=== PATIENT | female | born 1990 | race Caucasian/White ===

== ENCOUNTER 2023-08-08 08:13 | Outpatient (CLI) | payer BC, SELFPAY ==
--- NOTE | 2023-08-08 08:15 | CRLHL7_ITS ---
For Patients: As a result of the Cures Act, medical imaging exams and procedure reports are released immediately into your electronic medical record. You may view this report before your referring provider. If you have questions, please contact your health care provider. INDICATION: Dating and viability. TECHNIQUE: Ultrasound OB pelvis transabdominal and transvaginal. Real-time peña-scale imaging of the pelvis was performed. COMPARISON: None. FINDINGS: Patient reported last menstrual period: 06/02/2023 Gestational age by LMP: 9 weeks 4 days Intrauterine gestational sac: Present. Embryo present: Yes. Embryo cardiac activity: 174 BPM. Parks rump Length: 3.6 cm. Sonographic gestational age: 10 weeks 3 days. Sonographic estimated due date: 03/02/2024. Yolk sac: Normal, 4 mm. Perigestational hemorrhage: None. Ovaries and adnexae: Unremarkable. No suspicious lesions or fluid collections. IMPRESSION: Single viable intrauterine with an ultrasound estimated gestational age of 10 weeks 3 days. No abnormalities seen. Dictated by Elizabeth Castro MD @ 08/09/2023 11:23:02 AM (Electronically Signed)
== END 2023-08-08 08:14 | disposition home or self-care (01) ==
LOC: US 08:14
PROVIDERS: PCP Family Medicine; Visit Provider Physician Assistant
DX: Z34.91 Encounter for supervision of normal pregnancy, unspecified, first trimester (principal); Z3A.10 10 weeks gestation of pregnancy
CPT/HCPCS: 76817; 86317; 86592; 86703; 86704; 86706; 86762; 86778; 86787; 86803; 86850; 86900; 86901; 87086; 87340; 87491; 87591

== ENCOUNTER 2023-08-08 09:19 | Outpatient (CLI) | payer BC, SELFPAY ==
[2023-08-08 15:59] LABS: Chlamydia DNA Amplified* NOT DETECTED (No Detected); GC DNA Amplified* NOT DETECTED (No Detected)
== END 2023-08-08 09:20 | disposition home or self-care (01) ==
PROVIDERS: PCP Family Medicine; Visit Provider Physician Assistant
DX: Z34.91 Encounter for supervision of normal pregnancy, unspecified, first trimester (principal); Z3A.10 10 weeks gestation of pregnancy
CPT/HCPCS: 86317; 86592; 86703; 86704; 86706; 86762; 86778; 86787; 86803; 86850; 86900; 86901; 87086; 87340; 87491; 87591

== ENCOUNTER 2023-10-17 08:04 | Outpatient (CLI) | payer BC, SELFPAY ==
--- NOTE | 2023-10-17 08:15 | CRLHL7_ITS ---
For Patients: As a result of the Century Cures Act, medical imaging exams and procedure reports are released immediately into your electronic medical record. You may view this report before your referring provider. If you have questions, please contact your health care provider. INDICATION: Evaluate anatomy. COMPARISON: None. TECHNIQUE: Real time peña scale imaging of the fetus was performed. FINDINGS: Sonographic imaging demonstrates a single living intrauterine gestation. Fetus demonstrates a regular cardiac rate of 139 beats per minute. Fetus has a vertex orientation and longitudinal lie. The placenta lies posteriorly without evidence of placenta previa. Amniotic fluid volume appears normal. Single deepest vertical pocket: 4.7 cm. The cervix is closed and measures 4.3 cm in length. The composite ultrasound gestational age is calculated at 20 weeks 1 day with an estimated sonographic due date of March 04, 2024. The estimated weight is 346 grams which lies at the 86th percentile. The following biometric measurements were obtained: Biparietal diameter: 4.6 cm/19 weeks 6 days 65% Head circumference: 17.7 cm/20 weeks 2 days 73% Abdominal circumference: 15.6 cm/20 weeks 5 days 81% Femur length: 3.2 cm/19 weeks 6 days 55% The HC/AC ratio measures: 1.14 range (1.07-1.25) The anatomic survey is technically challenging due to bowel gas and body habitus. On anatomic survey, there is a normal appearance of the cerebral ventricles, cisterna magna and cerebellum. The nose, lips, and facial profile appear normal. The cervical, thoracic and lumbar spine are well visualized and appear normal. There is a normal four-chamber heart view and the left and right ventricular outflow tracts appear normal. diaphragm, stomach, kidneys and bladder appear normal. There is a normal three-vessel cord and cord insertion site. The four extremities appear normal. IMPRESSION: Normal OB ultrasound exam with concordance of clinical and sonographic dating. No intrinsic abnormalities noted on anatomic survey. Dictated by Brice Mondragon MD @ 10/17/2023 9:43:48 AM (Electronically Signed)
== END 2023-10-17 08:05 | disposition home or self-care (01) ==
LOC: US 08:05
PROVIDERS: PCP Family Medicine; Visit Provider Physician Assistant
DX: Z34.92 Encounter for supervision of normal pregnancy, unspecified, second trimester (principal); Z3A.20 20 weeks gestation of pregnancy
CPT/HCPCS: 76805

== ENCOUNTER 2023-12-07 10:05 | Outpatient (CLI) | payer BC, SELFPAY | END 2023-12-07 10:06 | disposition home or self-care (01) | LOC: NFLDREF 12-11 08:13 | PROVIDERS: PCP Family Medicine; Referring Provider Family Medicine; Visit Provider Obstetrics & Gynecology | DX: Z34.92 Encounter for supervision of normal pregnancy, unspecified, second trimester (principal); Z3A.26 26 weeks gestation of pregnancy | CPT/HCPCS: 86592 ==

== ENCOUNTER 2024-01-23 08:02 | Outpatient (CLI) | payer BC, SELFPAY ==
--- NOTE | 2024-01-23 08:15 | US_ITS ---
Patient: JEFF SOTO Facility:?[facility] Patient ID:?[id number] Site Patient ID:?[id number]. Site :?[id number] Study:?US-OB Pelvis OB F/U GROWTH-01/23/2024 8:46:48 AM Ordering Physician:?KALA NIX M.D. Final Report: CLINICAL HISTORY: LMP: 06/02/2023. EDILSON by LMP: 03/08/2024. GA: 33w,4d. Desai. INDICATION: Covid in . COMPARISON: 10/17/2023. FINDINGS: Cervix: Not visualized. position: Vertex. Placenta/cord: Posterior. Technique: Transabdominal. Amniotic Fluid: 5.5 cm SDP BPD: 8.2 cm. 32w 5d, 23 percent. HC: 31.4 cm. 35w 2d, 57 percent. AC: 30.8 cm. 34w 5d, 82 percent. FL: 6.5 cm. 33w 5d, 43 percent. FL/AC: 21.57 percent. HC/AC Ratio: 1.02. Heart rate: 126 beats per minute. age by this US: 34w 1d. EDILSON by this US: 03/04/2024. EFW: 2394 g. Weight: 5 lbs, 4 oz. Percentile by EDILSON: 65 percent. IMPRESSION: Measurements are consistent with dates. Good interval growth since the prior exam. CEZAR TUCKER M.D. JAYESHG:mable D& [email or web address] be/Dictated by: Cezar Tucker MD @ 01/23/2024 1:55:00 PM Signed by:?Cezar Tucker MD @01/23/2024 3:19:26 PM (Electronic Signature)
== END 2024-01-23 08:03 | disposition home or self-care (01) ==
LOC: US 08:02
PROVIDERS: PCP Family Medicine; Visit Provider Obstetrics & Gynecology
DX: O98.513 Other viral diseases complicating pregnancy, third trimester (principal); U07.1 COVID-19; Z3A.33 33 weeks gestation of pregnancy
CPT/HCPCS: 76816

== ENCOUNTER 2024-02-06 09:30 | Outpatient (CLI) | payer BC, SELFPAY ==
[2024-02-07 10:09] LABS: Strep B DNA Probe Negative (Negative)
[2024-02-07 10:28] LABS: Strep B Susceptibility Needed? No
== END 2024-02-06 09:31 | disposition home or self-care (01) ==
LOC: NFLDREF 09:42
PROVIDERS: PCP Family Medicine; Visit Provider Physician Assistant
DX: Z34.03 Encounter for supervision of normal first pregnancy, third trimester (principal)
CPT/HCPCS: 87081; 87653

== ENCOUNTER 2024-03-11 08:38 | Inpatient (IN) | payer BC, MEDICAID, SELFPAY ==
[2024-03-11] VITALS (96 sets, daily range): BP systolic 78–130; BP diastolic 45–78; PULSE 55–222; RESP 18; TEMP 36.6–37.1; O2SAT 81–100; BMI 39.1
[2024-03-11] MEDS: LACTATED RINGERS 1000 ML 1,000 ML 900 ML IV ×2 (09:10→10:10)
[2024-03-11] MEDS: fentaNYL 100 MCG/2 ML inj IVP (09:39)
[2024-03-11] MEDS: ROPIVACAINE 0.2% 100 ml 100 ML 12 MG EPIDURAL (09:45)
[2024-03-11] MEDS: BUPIVACAINE 0.25% PF 10 ML 10 ML ML EPIDURAL (09:46)
--- NOTE | 2024-03-11 10:04 | PM.ANBPRC ---
[facility] Medical History Traumatic hematoma of forehead ?S00.83XA - Contusion of other part of head, initial encounter (ICD-10) Family History Grandfather Diabetes Father High blood pressure Social History Narrative: History of chicken pox: Yes. History of blood transfusion: no. SOCIAL HISTORY: Occupation: [employer]. Marital status: . Adventism/cultural needs: no. Chemical or radiation exposure: yes, at work. Following appropriate precautions. Pre- tobacco use: no. Pre- alcohol use: 0-2/day. Current tobacco use: no. Current alcohol use: no. Recreational drug use: no. Dietary restrictions: no. Blood transfusion acceptable in an emergency: yes. FAMILY AND GENETIC HISTORY: See problem list. Denies history recurrent loss, defects, inheritable disease PSYCHOSOCIAL HISTORY: History of depression or currently depressed: yes. Current or past physical, emotional, or sexual mistreatment: no. Problems that will make it hard to make it to appointments: no. What is your current living situation?: I presently have a place to live Problems where you live: no known problems In the past 12 months, utilities in danger of being shut off: no In past 12 months, lack of transportation kept you from medical appts, meetings, work, or getting things needed for daily living: no In the past 12 mos, have been you worried that your food would run out before you had money to buy more?: never true In the past 12 mos, the food you bought just didn't last and you didn't have money to buy more?: never true Smoking Status: Never smoker How often does anyone, including family, friends and others, physically hurt you: never How often does anyone, including family, friends and others, insult or talk down to you: never How often does anyone, including family, friends and others, threaten you with harm: never How often does anyone, including family, friends and others, scream or curse at you: never Little interest or pleasure in doing things: not at all Feeling down, depressed, or hopeless: several days Meds Home Medications and Allergies Home Medications Medication Instructions Recorded Confirmed Type docosahexaenoic acid 200 mg mg PO .qd 08/08/23 03/05/24 History capsule ( DHA) aspirin 81 mg tablet,delayed 81 mg PO QDAY 11/06/23 03/11/24 History release (Adult Low Dose Aspirin) calcium carbonate (Tums) 200 mg PO BID 01/09/24 03/11/24 History vits no.130-ferrous fum 1 tab PO DAILY 03/10/24 03/11/24 History 27 mg iron-folic acid 800 mcg tablet ( Vitamin) Allergies Allergy/AdvReac Type Severity Reaction Status Date / Time Sulfamethoxazole / AdvReac Intermediate Uncoded 03/05/24 08:18 trimethoprim Results Vital Signs Vital Signs: Last Vital Signs Temp 98.8 F 03/11/24 07:36 Pulse 63 03/11/24 10:03 Resp 18 03/11/24 07:36 BP 92/51 L 03/11/24 10:03 Pulse Ox 99 03/11/24 10:00 Weight: 113.262 kg Height: 170.18 cm Anesthesia Procedures Epidural Insertion Patient Location: OB Start Time: 09:15 Stop Time: 09:45 Start Date: 03/11/24 Stop Date: 03/11/24 Reason for Block: procedure for pain Patient Position: sitting Performed By: Liset Spears Preanesthetic Checklist: IV checked, risks and benefits discussed, monitors and equipment checked, timeout performed and anesthesia consent Prep: chlorhexidine gluconate Monitoring: blood pressure monitoring, continuous pulse oximetry and heart rate Approach: midline Vertebral Space: lumbar (1-5) Epidural Technique: ELSIE saline Needle Type: Tuohy needle Injection Technique: continuous catheter Needle gauge: 17 Needle Length (cm): 10 cm Needle Insertion Depth (cm): 7 Catheter Gauge: 19 Catheter Type: multi-orifice Catheter at skin depth (cm): 12 Test Dose Result: negative and lidocaine 1.5% with epinephrine 1 to 200,000
[2024-03-11] MEDS: PHENYLEPHRINE 100 MCG/ML SYRINGE IVP ×8 (10:06→10:58)
[2024-03-11] MEDS: ePHEDrine sulfate 5 MG/ML inj 10 MG IVP ×2 (10:19→10:43)
[2024-03-11] MEDS: LACTATED RINGERS 1000 ML 1,000 ML 1200 ML IV (11:10)
[2024-03-11] MEDS: OXYTOCIN 30 unit/500 ML in NS 30 UNIT/500 ML BAG 300 UNIT IVPB (13:41)
[2024-03-11] MEDS: IBUPROFEN 600 MG TABLET PO (18:17)
--- NOTE | 2024-03-11 18:37 | P.ON_ITS ---
Brief Operative Note Date of procedure: 03/11/24
--- NOTE | 2024-03-11 18:37 | P.LDBA_ITS ---
Subjective History of Present Illness Time Seen by Provider: 11:00 Narrative: Patient is being admitted to Labor and Delivery for spontaneous labor. She is a 33 year old at 40.3 weeks gestation. Her full history and physical was dictated by Dr. Marga Weiner on 02/15/24. Please see this for details. She has been landen almost every 1-2 minutes and was 5/90/-1 on arrival to L&D. Specific Issues/Plans Spouse: Timmy. Baby: Girl. H&P by NDP on 02/15/2024 1. Anxiety and depression, Lexapro 10mg 2. surgical instrument technician Toxoplasmosis IgG and IgM: negative 3. History of asthma, has not used albuterol in years 4. Hyperhidrosis Recommend discontinuing oxybutynin and we can reassess 5. Recurrent UTIs 6. Obesity, BMI 34.7 * Hgb A1-C: 4.2% * ASA 81mg * 1hr GTT on 12/07/2023: 137 7. Hepatitis-B surface antibody: Indeterminate 8. Covid in 11/01/23: USN for growth at 32 weeks ordered on 12/21/2023. 01/23/2024 ultrasound for EFW: Vertex, S DP 5.5 cm. EFW 2394 g, 5 lb 4 oz, 65%. HC 57%, BPD 23%, AC 82%, FL 43% 9. GERD not controlled with famotidine. Given pantoprazole 40mg QD on 01/23/24. FLU SHOT: 08/08/23 COVID: Vaccinated, due for updated shot this fall, declined 10/03/23 Tdap: 01/09/24 34 wk Hgb: collected late 02/28 13.3 OB - Problem Based A/P Additional Plan (1) : Status: Acute Plan - Expected management - Pending epidural OB Exam Physical Exam Vital signs: Temp Pulse Resp BP Pulse Ox 98.4 F 78 18 129/66 82 L 03/11/24 14:15 03/11/24 15:58 03/11/24 07:36 03/11/24 15:58 03/11/24 12:23 Narrative: Physical exam: General: Grimacing. Breathing through contractions Psych: Alert and oriented x3, full affect HEENT: Normocephalic, atraumatic Lungs: Unlabored breathing in between contractions. Neuro: No focal deficit. Mentating appropriately Pelvic exam: /-1 per RN cervical exam
--- NOTE | 2024-03-11 18:37 | PM.ONB ---
Brief Operative Note Date of procedure: 03/11/24
--- NOTE | 2024-03-11 18:38 | W.PM.VAGD1_ITS ---
Procedure Delivery date: 03/11/24 Procedure Done: Global Procedure Details: Anu is a 33 year-old G1 P 0 admitted on 03/11/24 at 40 and 3/7 weeks gestation for spontaneous onset of labor. Cervical exam on admission was 5 cm/90 % effaced/-1 station with membranes intact in vertex presentation. Contractions were every 2 minutes. heart rate demonstrated baseline 125 bpm with moderate variability, + accelerations, - decelerations; a category I tracing. GBS negative SROM occurred at 10 12 on March 11 with clear fluid. Labor Analgesia: Epidural Pitocin: No Labor onset: March 11 at 0945 Complete: March 11 at 12 18 Pushing: March 11 at 1235 heart tones during second stage were II with rare variable and late decelerations. At 1338 a viable female delivered in vertex away presentation over intact perineum via spontaneous vaginal delivery. Infant was placed on maternal abdomen. Cord was clamped and cut after a 30-60 second delay. Nose and mouth were bulb suctioned. weight: 3790. 8 at 1 minute and 9 at 5 minutes. Shoulder dystocia: No. Nuchal cord: No . Placenta delivered spontaneously and complete at 1344 with a 3 vessel cord. Complications: None. Mother and were stable after delivery. Laceration(s): Right periurethral and periclitoral, repaired with 2-0 Vicryl for the right chapin urethral and 3-0 Vicryl for the periclitoral laceration. Estimated blood loss: 150 mL. Sponge and needles counts are correct. Mother and were stable at the time of this note. Delivery monitor: external FHT Route of delivery: Laceration description: Labial (Right periurethral and left periclitoral ) Delivery repair: Vicryl Estimated blood loss (mL): 150 Anesthesia type: Epidural Disposition: floor [place] Infant Gender: Female total score - 1 minute: 8 total score - 5 minute: 9
[2024-03-12 04:31] VITALS: BP 110/72; PULSE 66; RESP 18; TEMP 36.6
[2024-03-12] MEDS: ACETAMINOPHEN 500 MG TABLET 1000 MG PO (04:33)
[2024-03-12 06:39] LABS: Hemoglobin* 10.6 gm/dL (12.0-16.0)
--- NOTE | 2024-03-12 07:35 | PM.OBPNVD1 ---
OB - PN:Subj Subjective Date Seen: 03/12/24 Narrative: Heaven is a 33 y.o. G 1 P 0 who was admitted to L & D for spontaneous onset of labor. ?She had a NVD that was uncomplicated. The patient feels well. ?The pain is well controlled with current medications. ?She has no new complaints. ?She is breast feeding and reports things are going well. the patient has done well.? Vitals have been stable.? She has remained afebrile.? Has a good appetite, is tolerating a general diet. ?She is voiding without difficulty.? She is passing gas and has not had a bowel movement.? She is ambulating and denies any dizziness.? Has small amount of rubra lochia. OB - PN: Obj Exam Physical Exam: Vital signs: Temp Pulse Resp BP Pulse Ox O2 Del Method 97.8 F 66 18 110/72 98 Room Air 03/12/24 04:31 03/12/24 04:31 03/12/24 04:31 03/12/24 04:31 03/11/24 23:56 03/12/24 04:31 Narrative: GENERAL APPEARANCE:? normal affect, alert, no distress MOOD:? appropriate CHEST:? clear to auscultation HEART:? regular rate and rhythm ABDOMEN:? soft, non-tender the uterine fundus is at Umbilicus, Midline and is appropriate for the stage of recovery. PERINEUM:? mild edema of the perineum, there is a labial laceration, that is healing well. EXTREMITIES:? normal and no edema OB - PN: Obj Data Labs Labs: Laboratory Results - last 24 hr 03/12/24 06:24 Hgb 10.6 L OB - PN: A/P Delivery Assessment and Plan (1) care and examination immediately after delivery: Status: Acute (2) Lactating mother: Status: Acute Plan day: 1 Plan: routine care Comments: plan: Routine care , may see if needed Hgb 10.6. Anticipate discharge tomorrow
[2024-03-12 08:49] VITALS: BP 111/75; PULSE 73; RESP 12; TEMP 36.4
[2024-03-12 11:28] VITALS: BP 111/70; PULSE 67; RESP 12; TEMP 36.2
--- NOTE | 2024-03-12 15:19 | PC.SOCIAL ---
Discharge planning: aboriginal education worker coordinator received a referral for the pt today. aboriginal education worker coordinator talked to pt's nurse, Shannan, this morning to check in on referral needs/pt background. Pt's nurse shared that pt would benefit from receiving resources for mental health/post- depression and parenting. aboriginal education worker coordinator attempted to meet with pt around 3:00pm today and pt was not available due to having visitors. aboriginal education worker coordinator will attempt to come back to meet with pt later today or tomorrow morning. Social work to follow-up as needed.
[2024-03-12 17:58] LABS: Rapid Plasma Reagin (RPR) Non Reactive (Non Reactive)
[2024-03-12 19:41] VITALS: BP 123/75; PULSE 76; RESP 16; TEMP 36.5
[2024-03-12] MEDS: IBUPROFEN 600 MG TABLET PO (19:46)
[2024-03-13 02:21] VITALS: BP 113/64; PULSE 66; RESP 14; TEMP 36.4; O2SAT 99
[2024-03-13] MEDS: IBUPROFEN 600 MG TABLET PO (06:08)
--- NOTE | 2024-03-13 07:45 | PM.OBDSVD1 ---
DS: Providers Provider Date Seen: 03/13/24 Date of admission: 03/11/24 08:38 Primary care physician: Lele Chaparro MD Admitting Clinician: Lillie Dash MD Consults: 03/11/24 23:57 Consult to Family Advocate [CONS] Routine Comment: Reason for Consult:: Psycho-Social Needs Attending Physician on discharge: Lillie Dash MD Date of Discharge: 03/13/24 DS: Diagnosis Discharge Diagnosis (1) Lactating mother: Status: Acute (2) care following vaginal delivery: Status: Acute Exam Narrative: Exam Narrative: GENERAL APPEARANCE:? normal affect, alert, no distress? MOOD:? appropriate? CHEST:? clear to auscultation and percussion? HEART:? regular rate and rhythm? ABDOMEN:? soft, non-tender the uterine fundus is U/2 and is appropriate for the stage of recovery.? PERINEUM:? mild edema of the perineum, there is a labial laceration that is healing well.? EXTREMITIES:? normal and no edema? She is requesting discharge home today. Const: Vital Signs, click to edit/add: Vital Signs - 24 hr 03/12/24 08:49 03/12/24 11:28 03/12/24 19:41 Temperature 97.6 F 97.1 F L 97.7 F Pulse Rate [Pulse Oximeter] 73 67 76 Respiratory Rate 12 12 16 Blood Pressure [Le ft Arm] 111/75 111/70 123/75 Pulse Oximetry Oxygen Delivery Me thod 03/13/24 02:21 Temperature 97.6 F Pulse Rate [Pulse Oximeter] 66 Respiratory Rate 14 Blood Pressure [Le ft Arm] 113/64 Pulse Oximetry 99 Oxygen Delivery Me thod Room Air Documenting provider has reviewed patient's vital signs: yes OB - DS: Summary Hospital Course Hospital Course: The patient is a 33 year old G 1 P 1 at 40.4 weeks gestation that was admitted to the Center on 03/11/24 for spontaneous labor. She had an uncomplicated vaginal delivery. She delivered a viable female . She is breast feeding and denies concerns with how it is going. the patient has done well. Her pain is well controlled with current medications.? She has no new complaints.? Urinary output is adequate and she is voiding without difficulty.? Has a good appetite, is tolerating a general diet, is passing flatus, and has not had a bowel movement.? Has scant amount of rubra lochia.? She is ambulating well. She is likely planning an IUD for control. Peripartum Data delivery method: Vaginal Laceration description: Labial Episiotomy description: None complications: none [place] Infant Gender: Female Infant Discharge Plan: Home Status at Discharge Functional status at discharge: independent ambulation Overall status at discharge: patient is progressing back to baseline Time Spent with Patient Time attestation: Total time spent providing and/or coordinating discharge services: Discharge Plan Discharge Disposition: Home, Self-Care Date of Admission: 03/11/24 08:38 Attending Provider on Discharge: Elin Allen Primary Care Provider: Lele Chaparro Condition: Stable Anticipated Discharge Date/Time: 03/13/24 10:00 Discharge Medications: New ibuprofen 600 mg Tablet 600 mg PO Q6H PRNQty: 30 0RF docusate sodium 100 mg Capsule 100 mg PO DAILY Qty: 60 0RF Rx Instructions: Take 1-2 tablets daily as needed for constipation. Continued calcium carbonate [Tums] 200 mg calcium (500 mg) tablet,chewable 200 mg PO BID albuterol sulfate 90 mcg/actuation HFA aerosol inhaler 2 puff inhalation QID PRN (Reason: shortness of breath or wheezing) Qty: 8.5 3RF Hold Instructions: not needed DHA 200 mg capsule 200 mg PO .qd escitalopram oxalate 10 mg tablet 10 mg PO DAILY Qty: 90 3RF pantoprazole 40 mg tablet,delayed release (DR/EC) 40 mg PO QDAY Qty: 90 0RF Vitamin 27 mg iron- 800 mcg tablet 1 tab PO DAILY Discontinued aspirin [Adult Low Dose Aspirin] 81 mg tablet,delayed release (DR/EC) 81 mg PO QDAY Discharge Orders: Discharge Order (Routine); Ordered 03/13/24 Ordered By: Elin Allen Patient Education: OB Vaginal/Breast Feeding Additional Instructions: Discharge instructions were reviewed with the patient including signs and symptoms of infection and home going medications.? Lifting Restrictions: 20 pounds for 6? weeks? ?? Do not drive while taking narcotic pain meds.? Off Work or School for 6 weeks.? ?? Symptoms to report to doctor:? -Bleeding that saturates more than one pad per hour? -Passing clots larger than the size of a golf ball? -Pain not relieved by prescribed medication? -Fever above 100.4 degrees Fahrenheit? -A foul vaginal odor? -Difficulty in emotions, mood and functions? -Thoughts of hurting yourself and/or ? -Painful, reddened area in your breast? -Any drainage, redness or tenderness in your IV/epidural site? -Severe headache that doesn't improve after taking medications? -Changes in vision, including temporary loss of vision, blurred vision, and/or light sensitivity? -Upper abdominal pain (usually under ribs on the right side)? -Decrease in urination or painful, frequent urinating? -Chest pain? -Shortness of breath? -Tenderness or pain with redness and/swelling in the calf(s) of your leg? ?? Follow Up in clinic in 2 and 6 weeks.? ?? consultation services are available to all mothers and babies for the first year after delivery.? To make an appointment, please call [phone].? Activity Level: No Restrictions and Activity as Tolerated Discharge Diet: Regular Follow Up Appointments: [facility] [Provider Group] Lele Chaparro MD [Primary Care Provider] - Forms: MyHealth Info Instructions Discharge Comments: Follow up with on Monday03/15/24 at 9:30.
--- NOTE | 2024-03-13 08:47 | PM.ANPOST ---
Post Anesthesia Note Post Anesthesia Note Patient seen: Inpatient Respiratory Status: adequate Cardiovascular Status: adequate Mental Status: baseline Pain: adequate Temp: baseline Anesthetic awareness: N/A Complications: none Follow care: none
[2024-03-13 09:10] VITALS: BP 142/81; PULSE 72; RESP 16; TEMP 36.7; O2SAT 97
[2024-03-13 09:25] VITALS: BP 131/85
--- NOTE | 2024-03-13 10:45 | PC.SOCIAL ---
Discharge planning: alley worker met with pt today in her room and provided her with resources for [place] [facility] as a new parent(pt's address is listed as [facility] in [facility]; however, pt clarified that her address is [facility]). Social work provided pt with information on the Baby Talk class that is in [place] through [employer] [employer] in partnership with [facility]. alley worker also provided pt with resources for mental health counseling in [place]. Pt was thankful for the information. Social work to follow-up as needed.
== END 2024-03-13 12:01 | disposition home or self-care (01) | DRG 560 ==
LOC: OB OUT 08:39 → OB 08:39
PROVIDERS: Admitting Provider Obstetrics & Gynecology; PCP Family Medicine; Visit Provider Obstetrics & Gynecology
DX: O99.344 Other mental disorders complicating childbirth (principal); F41.9 Anxiety disorder, unspecified; F32.A Depression, unspecified; O71.82 Other specified trauma to perineum and vulva; K21.9 Gastro-esophageal reflux disease without esophagitis; O99.214 Obesity complicating childbirth; Z37.0 Single live birth; Z3A.40 40 weeks gestation of pregnancy
CPT/HCPCS: 01967; 36415; 59025; 85018; 86592; G0463; A9270; J0665; J2371; J2795; J3010; J7120

== ENCOUNTER 2024-03-15 09:11 | Outpatient (CLI) | payer BC, SELFPAY ==
--- NOTE | 2024-03-15 10:48 | P.LACCB_ITS ---
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 Delivery Information Delivery type: Vaginal Weeks Gestation: 40.4 Gestational Age: AGA Weight: 3.79 kg Discharge Weight: 3.53 kg Baby's Information Baby's Age at Visit: 4 days Jaundice: No Reason for Consult Reason for Consult: assessment, questions re: pumping Past Experience Past Experience: No Current Frequency of Day Feedings: cluster feeding Frequency of Night Feedings: mom is waking her every three hours Both Breasts: Yes (not with every feeding) Suck: strong Latch: fairly wide Length of Time: about 20 minutes Pumping Pumping: No Supplementing EMB Supplement: No Formula Supplement: No Baby Elimination Number of Wet Diapers a Day: 4 - 5 Number of BM a Day: 3 - 4, dark yellow and seedy Breast/Nipple Condition Breast Information: WNL Engorgement: Yes (resolving) Maternal Nipple Condition - Left: Common Nipple Maternal Nipple Condition - Right: Common Nipple Onsite Pre-Feed weight: 3.608 kg Post-Feed weight: 3.668 kg Assessments/Interventions Assessments/Interventions: Met with mom and this now 4 day old ex- term AGA baby for consult. Mom reports her milk came in about two days ago and she felt really engorged yesterday but is better today. Baby is cluster feeding during the day and mom is waking her to nurse every three hours overnight. She states that she doesn't always offer both sides and sessions last at least 20 minutes. She hasn't started pumping and baby has not been offered and supplement by bottle. Mom is concerned about how much baby is spitting up. She's wondering if she needs to nurse her again afterwards. Breasts WNL- symmetrical with rounded lower quadrants, intramammary distance is < 1.5 inches. Nipples are everted and don't flatten or retract on compression, scabbing noted to the left nipple. Baby has gained 78 grams since D/C and is now 5% below BW at 4 DOL. Mom denies any caput/cephalohematoma at delivery and states baby has equal ROM when turning her head and moving her extremities. Baby's palate is WNL. Her upper frenulum is a little tight but the lower frenulum is WNL. She has a fairly strong suck on a finger and her tongue consistently extends over the gumline. The tongue also has fairly good lateral movement. Mom latched baby to the left side in the cross cradle hold, but the positioning was awkward. Mom was coached to have baby more tummy to tummy and support her breast so that baby was coming to the breast chin first. Mom was able to get a wider latch and was comfortable. Baby nursed for about 10 minutes, needing some stimulation to stay awake. Mom roused her and offered the other side, latch was wide and mom was comfortable. Baby was sleepier on this side and needed more stimulation but nursed another 7 - 10 minutes. She transferred 60 ml. Reviewed spitting up in newborns: WNL if not affecting baby's weight and she doesn't seem to be in pain, often looks like more than what was actually spit u p, if baby seems hungry afterwards ok to breastfeed again. Plan: 1. Continue nursing baby ALD or at least every three hours until she's back to BW, offering both sides each time. Reviewed that after a few hours of cluster feeding it's ok to go past three hours. 2. Suggested mom hand express/use the Haakaa before nursing if needed to help baby latch. Can also express milk to comfort if needed after nursing. No need to pump to empty or to start storing milk yet. 3. Suggested mom wait until baby is about a month old to introduce the bottle. 4. Suggested she keep baby upright for about 15 minutes after nursing. 5. F/U with PCP for her NB visit later today. 6. Encouraged Baby Talk or Baby Stop and handouts given. Meds Home Medications and Allergies Home Medications Medication Instructions Recorded Confirmed Type docosahexaenoic acid 200 mg 200 mg PO .qd 08/08/23 03/12/24 History capsule ( DHA) calcium carbonate (Tums) 200 mg PO BID 01/09/24 03/11/24 History vits no.130-ferrous fum 1 tab PO DAILY 03/10/24 03/11/24 History 27 mg iron-folic acid 800 mcg tablet ( Vitamin) Allergies Allergy/AdvReac Type Severity Reaction Status Date / Time Sulfamethoxazole / AdvReac Intermediate Uncoded 03/05/24 08:18 trimethoprim
== END 2024-03-15 09:12 | disposition home or self-care (01) ==
LOC: OB LAC 09:12
PROVIDERS: PCP Family Medicine; Visit Provider Pediatrics
DX: Z39.1 Encounter for care and examination of lactating mother (principal)
CPT/HCPCS: G0463

== ENCOUNTER 2024-12-12 07:57 | Outpatient (CLI) | payer BC, SELFPAY | END 2024-12-12 07:58 | disposition home or self-care (01) | PROVIDERS: PCP Family Medicine; Visit Provider Family Medicine | DX: R53.83 Other fatigue (principal); E66.9 Obesity, unspecified; F33.1 Major depressive disorder, recurrent, moderate; F41.9 Anxiety disorder, unspecified; Z13.6 Encounter for screening for cardiovascular disorders | CPT/HCPCS: 80053; 80061; 84443 ==

== ENCOUNTER 2025-03-12 13:45 | Outpatient (CLI) | payer BC, SELFPAY ==
--- NOTE | 2025-03-12 13:45 | MR_ITS ---
[address] [address] Phone:?[phone] Fax:?[phone] Referring Physician Information: Courtney Hannah [address] [facility] [address] Phone:?[phone] Fax:?[phone] Patient:?Heaven Phelan D.O.B:?1990 Sex:?Female Phone:?[phone] [facility] MRN:?[id number] Exam Date:?03/12/2025 EXAM: MRI EXAMINATION OF THE RIGHT KNEE CLINICAL INFORMATION: Right knee pain. Injury. Possible internal derangement. TECHNICAL INFORMATION: Coronal PD and STIR. Axial PD and T2 fat saturation. Sagittal PD and PD fat saturation images acquired. No prior studies for comparison. INTERPRETATION: Bones: Marrow edema signal to indicate osseous contusion all along the posterior margin of the tibial plateau. There is additional osseous contusion involving the weightbearing surface of the lateral femoral condyle. No evidence for an acute fracture. No other abnormal bone marrow edema pattern is identified. Ligaments and tendons: The medial collateral ligament is intact, without acute sprain or tear. The iliotibial band, fibular collateral ligament, biceps femoris tendon and popliteus tendon all are intact. There is an acute strain injury involving the popliteus muscle belly. Associated 2.1 cm intramuscular collection in keeping with a hematoma. Residua of ACL injury, MRI appearance in keeping with a full-thickness tear of the expected femoral attachment. The posterior cruciate ligament is intact. Extensor Mechanism: The patellar and quadriceps tendons are intact. The medial and lateral retinacula are intact. Knee Joint: Large knee joint effusion. No discrete popliteal cyst. There is no discrete loose body seen within the joint. Medial Compartment: There is tearing and truncation throughout the anterior horn of the medial meniscus with an adjacent 2.1 cm flap fragment. There is horizontal tearing of the posterior horn, with an additional moderate grade radial tear of the far posterior horn and posterior root insertion. No parameniscal cyst. There is no focal chondral defect. No other significant changes of chondromalacia. Lateral Compartment: There is a complex, high-grade tear involving the far posterior horn and posterior root insertion of the lateral meniscus. Series 6 images 15 and 16 as well as series 8 image 22 appear to demonstrate an adjacent 9 mm flap fragment. No parameniscal cyst. There is a small segment of grade 3 to IV chondromalacia involving the weightbearing surface of the lateral femoral condyle, at the level of the osseous contusion. No other significant changes of chondromalacia. Patellofemoral articulation: There grade 2 changes of chondromalacia across the patella, at and inferior to its midportion. There is a 1 cm craniocaudal segment of grade II and III chondromalacia of the midline trochlear groove. CONCLUSION: 1. Residua of ACL injury and full-thickness tear of the femoral attachment. 2. Marked associated osseous contusion pattern, without acute fracture. 3. Tearing and truncation throughout the anterior horn medial meniscus with an adjacent 2.1 cm flap fragment. Horizontal tear of the posterior horn with an additional partial-thickness radial tear of the far posterior horn and posterior root insertion. 4. Complex, high-grade tear of the far posterior horn and posterior root insertion lateral meniscus with a 9 mm flap fragment. 5. A small segment of grade III to IV chondromalacia involves the weightbearing surface of the lateral femoral condyle, at the site of osseous contusion. 6. 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 There is a small to moderate-sized segment of grade II and III chondromalacia of the midline trochlear groove. 7. Acute popliteus muscle belly strain injury with a 2.1 cm intramuscular hematoma. KES Electronically signed on 03/13/2025 10:02:00 AM by Corey Hollins M.D.
== END 2025-03-12 13:46 | disposition home or self-care (01) ==
PROVIDERS: PCP Family Medicine; Visit Provider Physician Assistant
DX: M25.561 Pain in right knee (principal); S83.241A Other tear of medial meniscus, current injury, right knee, initial encounter; S83.271A Complex tear of lateral meniscus, current injury, right knee, initial encounter; M94.261 Chondromalacia, right knee; M22.41 Chondromalacia patellae, right knee; M25.461 Effusion, right knee; S89.91XA Unspecified injury of right lower leg, initial encounter
CPT/HCPCS: 73721

== ENCOUNTER 2025-03-18 20:06 | Outpatient (CLI) | payer BC, SELFPAY ==
--- NOTE | 2025-03-25 12:30 | W.PM.SLEEP ---
Sleep Study Details Details Interpreting Provider: Olivia Date of Sleep Study: 03/18/25 Sleep Study Details: STUDY TYPE:? Attended hospital-based ? BMI:? 37.6 ORDERING PROVIDER:? Camden INDICATION:? Concerned about sleep apnea ? SLEEP SUMMARY:? 391 minutes total sleep time RESPIRATORY SUMMARY:? AHI 0.3 per CMS guideline 3.4 per rule 1A Supine AHI per rule 1A 6.6, supine REM AHI 0 PERIODIC LIMB MOVEMENTS OF SLEEP:? None CARDIAC:? Awake 61 asleep 65 no arrhythmias noted IMPRESSION:? This polysomnogram is within normal limits with the exception of mild obstructive apnea during supine sleep. RECOMMENDATION: Patient should be counseled to avoid supine sleep. If sleep disorder strongly suspected would recommend a repeat polysomnogram with a multiple sleep latency test (MSLT) to follow.
== END 2025-03-18 20:07 | disposition home or self-care (01) ==
LOC: SLEEP 20:06
PROVIDERS: PCP Family Medicine; Visit Provider Family Medicine
DX: G47.33 Obstructive sleep apnea (adult) (pediatric) (principal)
CPT/HCPCS: 95810

== ENCOUNTER 2025-04-17 11:48 | Outpatient (CLI) | payer BC, SELFPAY | END 2025-04-17 11:49 | disposition home or self-care (01) | LOC: LKVREF 11:48 | PROVIDERS: PCP Family Medicine; Visit Provider Otolaryngology | DX: G25.81 Restless legs syndrome (principal) | CPT/HCPCS: 82728 ==

== ENCOUNTER 2025-08-11 05:59 | Day surgery (SDC) | payer BC, SELFPAY ==
[2025-08-11] VITALS (11 sets, daily range): BP systolic 93–125; BP diastolic 51–85; PULSE 61–77; RESP 10–16; TEMP 36.6–36.7; O2SAT 97–100; BMI 38.5
[2025-08-11] MEDS: LACTATED RINGERS 1000 ML 1,000 ML 100 ML IV ×2 (06:05→10:32)
[2025-08-11 06:28] LABS: Ur HCG Qualitative* Negative (Negative)
[2025-08-11] MEDS: SODIUM CHLORIDE 0.9 % (FLUSH) 10 ML SYRINGE IVF (06:35)
[2025-08-11] MEDS: MIDAZOLAM HCL 1 MG/ML inj IVP (07:15)
--- NOTE | 2025-08-11 07:22 | SUR.PREOP ---
TIME?OUT:?0714 PT/RN/MDA?VERIFICATION?OF?SURGICAL?SITE,?PROCEDURE,?AND?CONSENT OBTAINED?PRIOR?TO?INVASIVE?PROCEDURE.
--- NOTE | 2025-08-11 07:26 | W.PM.H&PU ---
History & Physical Update History & Physical Update H&P Reviewed and patient assessed: No changes noted
--- NOTE | 2025-08-11 09:28 | P.NB_ITS ---
Nerve Block Nerve Block Time Seen by Provider: 07:15 Date Seen: 08/11/25 Type of block requested by surgeon for post-operative analgesia: popliteal Side: right Time out performed: Yes Verification of patient name: Yes Verification of date of : Yes Site marking: site marked Name of person performing procedure: Sherif Continuous monitoring Was continuous monitoring of O2 sat, B/P, wind turbine installer, recorded every 15 minutes?: Yes Procedure Checklist: sterile prep, needles and gloves Ultrasound guided. Images saved: Yes Medications given in 5ml increments after negative aspiration: Marcaine %: 0.25 mL: 15 and Exparel mL: 5 Needle gauge: 20 Patient tolerated procedure well: Yes Additional comments: Needle noted adjacent to nerve Block Charges Block Charge (with Pro Fee): Sciatic Nerve Use of Ultrasound Machine for Block: Yes- US Guidance/pain block
--- NOTE | 2025-08-11 09:30 | P.ANES_ITS ---
Anesthesia Charges Start Date/Time Anesthesia Start Date: 08/11/25 Anesthesia Start Time: 07:23 Stop Date/Time Anesthesia Stop Date: 08/11/25 Anesthesia Stop Time: 10:14 Coding CPT Codes CPT Codes: ANESTH KNEE JOINT SURGERY - 67188 ([id number]) P3 - PATIENT W/SEVERE SYS DISEASE, QK - RESIDENTIAL INSTALLER 2-4 CNCRNT ANES PROC, QX - BACK HANGER SVC W/ MD MED DIRECTION
--- NOTE | 2025-08-11 09:30 | W.PM.NB ---
Nerve Block Nerve Block Time Seen by Provider: 07:15 Date Seen: 08/11/25 Type of block requested by surgeon for post-operative analgesia: adductor canal Side: right Time out performed: Yes Verification of patient name: Yes Verification of date of : Yes Site marking: site marked Name of person performing procedure: Sherif Continuous monitoring Was continuous monitoring of O2 sat, B/P, legal support analyst, recorded every 15 minutes?: Yes Procedure Checklist: sterile prep, needles and gloves Ultrasound guided. Images saved: Yes Medications given in 5ml increments after negative aspiration: Marcaine %: 0.25 mL: 15 Needle gauge: 20 and Exparel mL: 5 Patient tolerated procedure well: Yes Block Charges Block Charge (with Pro Fee): Femoral Nerve Use of Ultrasound Machine for Block: Yes- US Guidance/pain block
--- NOTE | 2025-08-11 09:30 | W.ANESCHARGE ---
Anesthesia Charges Start Date/Time Anesthesia Start Date: 08/11/25 Anesthesia Start Time: 07:23 Stop Date/Time Anesthesia Stop Date: 08/11/25 Anesthesia Stop Time: 10:14 Coding CPT Codes CPT Codes: ANESTH KNEE JOINT SURGERY - 31263 ([id number]) P3 - PATIENT W/SEVERE SYS DISEASE, QK - CUFF TURNER 2-4 CNCRNT ANES PROC, QX - SEED LABORATORY TECHNICIAN SVC W/ MD MED DIRECTION
--- NOTE | 2025-08-11 09:48 | PM.ORPRC ---
Procedure Note Date of procedure: 08/11/25 Procedure: PREOPERATIVE DIAGNOSIS: 1. Right knee ACL tear, acute, complete 2. Right knee medial and lateral meniscus tear POSTOPERATIVE DIAGNOSIS: 1. Right knee ACL tear, acute, complete 2. Right knee medial meniscus tear-anterior horn flap tear, chronic appearing. 3. Right knee lateral meniscus posterior root tear, more acute appearing PROCEDURE: 1. Right knee arthroscopically assisted ACL reconstruction with graftlink allograft 2. Right knee arthroscopic partial medial meniscectomy 3. Right knee arthroscopic lateral meniscus posterior root repair 4. Intraoperative fluoroscopy operated and interpreted by Dante Enriquez M.D. for intraoperative evaluation of femoral button positioning. Fluoroscopy time was 4 seconds. SURGEON: Dante Enriquez M.D. INNER DIAMETER GRINDER TOOL: Porfirio AGGARWAL; Zeus Whaley PA-C. Of note, an assistant speech language pathologist was critical for this case to aid in patient positioning, knee manipulation, instrument exchange, and closure. ANESTHESIA: General plus regional block EBL: 50 mL TOURNIQUET: 52 minutes at 270 torr IMPLANTS: Arthrex femoral tight rope button and tibial ABS button along with a backup on the tibial fixation with a 4.75 mm peek swivelock suture anchor; Sutureloc for lateral root repair. COMPLICATIONS: None evident INDICATIONS: The patient is a pleasant 35-year-old female. They have experienced a right knee injury resulting in knee instability. MRI was obtained and confirmed complete ACL disruption, consistent with the physical exam. The MRI also suggested a medial meniscus and lateral meniscus tearing. Given the findings, as well as the patient's desire to remain physically active with cutting/pivoting type activities, surgery was recommended. FINDINGS: Exam under anesthesia revealed positive Mya's grade 2 B. Grade 2 pivot shift. Stable posterior drawer. Stable to varus and valgus stress at 0 and 30?. The diagnostic arthroscopy showed a small loose body in the notch. Grade 3 chondromalacia lateral femoral condyle over a region of 15 x 18 mm (M-L and A-P, respectively. Lateral tibia showed grade 2 chondromalacia with fissuring. Torn posterior root lateral meniscus that was near complete. Some soft tissue connection to the ligament of Wrisberg noted. Medial meniscus showed an unstable anterior horn flap fragment in the white white-red white zone. Posterior root was intact. No other significant tearing noted. PCL is intact. ACL was torn completely and primarily fallen onto the tibial surface. DESCRIPTION OF PROCEDURE: After a thorough discussion of risks, benefits, and alternatives, the patient was brought to the operating room and placed upon the operating table. Induction of anesthesia was undertaken as previously noted. 2 g IV Ancef was administered within 1 hr of incision preoperatively. Appropriate time-out was performed identifying proper patient, site, and procedure. The right lower extremity was prepped and draped in the appropriate sterile fashion using ChloraPrep. The limb was exsanguinated and tourniquet inflated. Anterolateral and anteromedial portals were established with an 11 blade, and a diagnostic arthroscopy was performed. This identified the findings as noted above. Following the diagnostic arthroscopy, a partial medial meniscectomy was performed with a combination of basket forceps and torpedo shaver. After this, the meniscus was reprobed and found be stable. We then turned our attention to the lateral meniscus posterior root repair. The lateral meniscal root was debrided with a 4.0 mm torpedo shaver and arthroscopic rasp to freshen the meniscal edge. This also allowed us to debride some the synovium and the tibial surface. The drill guide was utilized, a drill pin passed, and after confirming proper positioning, the stylus was removed and a Nitinol wire passed through the cannulated drill bit. This allowed us to shuttle a FiberLink. The FiberLink then allows to shuttle the Sutureloc device. After passing this and back loading it to confirm secure holding, 1 of the suture tails was passed in a vertical mattress fashion through the meniscus. This was done by passing 1 of the tails through followed by the FiberLink loop through and allowing this to shuttle that original suture back down through the meniscus. This was then shuttled through its respective link in the Sutureloc device. Prior to securing this fully, the 2nd suture was passed slightly more lateral allowing a rip-stop type of configuration. Thereafter, the knee was cycled multiple times and the sutures were re-tensioned. Excellent reapproximation of the meniscus was achieved. Attention was turned to the ACL reconstruction: The graft had been thawing on the back table inside the package in warm saline. Once this was properly thawed, it was prepared with the passing sutures and the femoral tight rope button. It was then placed on tension, and sized. It was approximately a 9.5+ mm diameter graft. While the graft was being prepared, simultaneously, the remaining ACL stump was debrided with a combination of shaver and basket forceps. After evaluating the current fibers of the existing ACL stump, we drilled the tunnels in an independent manner for anatomic tunnel positioning. A 9.5 mm flip cutter was utilized for the femoral tunnel and for the tibial tunnel. After preparing the graft and drilling tunnels, the graft was passed without difficulty and the femoral button was directly visualized to exit the femoral tunnel and the button was flipped. C-arm fluoroscopic imaging confirmed proper flipping of the femoral button and was apposed against the femoral cortex. The knee was then cycled 35+ times with tension on the graft while holding the internal brace sutures to ensure that the button state apposed against the femoral cortex. The internal brace was secured with a 4.75 mm peek SwiveLock suture anchor in the proximal tibia after drilling, tapping, and placing the anchor. Thereafter, the tibial ABS button was then placed, and the tibial ACL sutures secured over this with the knee near full extension. Excellent tension on the graft was achieved. Final tensioning was performed on femoral side. A Mya test was performed again, and found to be stable grade 1A. The graft was reprobed on the inside of the knee and again found to be taut and stable. At this stage, closure was performed with 2-0 Vicryl and 4-0 Monocryl to close the subcutaneous and subcuticular layers, respectively. Dressings were applied, tourniquet deflated, and the T scope hinged knee brace was applied. The patient was awoken from anesthesia and transferred to the PACU in stable condition. PLAN: 1. Toe-touch weightbear operative extremity until quad control has been restored. Crutch / walker ambulation assistance PRN. 2. Ice, acetominophen and/or ibuprofen, and Percocet for pain as needed. 3. Knee range of motion and quad sets/straight leg raise regularly 4. Follow up with me in 1-2 weeks for a wound check.
--- NOTE | 2025-08-11 10:19 | P.ANES_ITS ---
Anesthesia Charges Start Date/Time Anesthesia Start Date: 08/11/25 Anesthesia Start Time: 07:23 Stop Date/Time Anesthesia Stop Date: 08/11/25 Anesthesia Stop Time: 10:14 Coding CPT Codes CPT Codes: ANESTH KNEE JOINT SURGERY - 86740 ([id number]) P3 - PATIENT W/SEVERE SYS DISEASE, QK - WAITER/WAITRESS CLUB 2-4 CNCRNT ANES PROC, QX - STRUCTURES ASSEMBLER SVC W/ MD MED DIRECTION
--- NOTE | 2025-08-11 10:19 | W.ANESCHARGE ---
Anesthesia Charges Start Date/Time Anesthesia Start Date: 08/11/25 Anesthesia Start Time: 07:23 Stop Date/Time Anesthesia Stop Date: 08/11/25 Anesthesia Stop Time: 10:14 Coding CPT Codes CPT Codes: ANESTH KNEE JOINT SURGERY - 47828 ([id number]) P3 - PATIENT W/SEVERE SYS DISEASE, QK - HEAD CHEF 2-4 CNCRNT ANES PROC, QX - RESEARCH TECHNOLOGIST SVC W/ MD MED DIRECTION
== END 2025-08-11 12:11 | disposition home or self-care (01) ==
LOC: OR 06:01
PROVIDERS: Anesthesiology; PCP Family Medicine; Visit Provider Orthopaedic Surgery Sports Medicine
PROC: (CPT 27428; principal; 2025-08-11 07:15)
DX: S83.511A Sprain of anterior cruciate ligament of right knee, initial encounter (principal); S83.241A Other tear of medial meniscus, current injury, right knee, initial encounter; S83.281A Other tear of lateral meniscus, current injury, right knee, initial encounter; G89.18 Other acute postprocedural pain
CPT/HCPCS: 29888; 29881; 29882; 01400; 64445; 64447; 73560; 76000; 76942; 81025; 97161; C1713; C1762; J0665; J0666; J0690; J1100; J2250; J2371; J2405; J2704; J3010; J3490; J7120; L1833